=== PATIENT | female | born 1955 | race Hispanic/Latino ===

== ENCOUNTER → 2018-06-24 | Outpatient (CLI) | payer OTHER | LOC: MAMMO 10:01 | PROVIDERS: ATTEND Family Medicine | DX: Z12.31 Encounter for screening mammogram for malignant neoplasm of breast (principal) | CPT/HCPCS: 77067 ==

== ENCOUNTER → 2019-08-25 | Outpatient (CLI) | payer OTHER ==
--- NOTE | 2019-08-25 13:07 | Diagnostic Imaging Report ---
Exam: Bone mineral density study. History: Osteoporosis screening Comparison: None Discussion: Evaluation of the left hip and lumbar spine was performed . The study is technically adequate. The patient's fracture risk is compared to an age-matched control. The patient denies prior surgery/fracture of the spine, hips or forearm. Left hip femoral neck bone mineral density: 1.211 g/cm2, T-score is 2.9, Z-score is 4.2. Left hip total bone mineral density: 1.339 g/cm2, T-score is 2.8, Z-score is 3.9. Lumbar spine total bone mineral density: 1.331 gm/cm2, T-score is 2.6, Z-score is 4.2. Impression: 1. Bone mineralization by WHO Classification of the left hip is normal, the fracture risk is not increased. 2. Bone mineralization by WHO Classification of the lumbar spine is normal, the fracture risk is not increased. Signed by: Dr. Nahum Acuña MD on 08/25/2019 1:04 PM
== END ==
LOC: DX 11:26
PROVIDERS: ATTEND Nurse Practitioner Primary Care
DX: Z13.820 Encounter for screening for osteoporosis (principal)
CPT/HCPCS: 77080